=== PATIENT | male | born 1975 | race Caucasian/White ===

== ENCOUNTER 2024-04-22 06:47 | Emergency (ER) | payer OTHER, SELFPAY ==
[2024-04-22 06:52] VITALS: BP 166/103
[2024-04-22 07:26] VITALS: BMI 38.2
[2024-04-22 07:31] VITALS: BP 154/100
[2024-04-22 07:43] LABS: % Basophils 0.5 % (0-2); % Eosinophils 0.2 % (0-6); % Immature Granulocytes 0.7 % (0-0.5); % Lymphocytes 11.1 % (20.5-51.1); % Monocytes 11.8 % (1.7-9.3); % Neutrophils 75.7 % (42.2-75.2); Absolute Lymphocytes 0.6 10^3/uL (1.2-3.4); Absolute Monocytes 0.7 10^3/uL (0.1-0.6); Absolute Neutrophils 4.2 10^3/uL (1.4-6.5); Hematocrit 45.4 % (39.0-52.0); Hemoglobin 15.2 g/dL (13.0-18.0); Mean Corp Hgb Conc. 33.5 g/dL (33.0-37.0); Mean Corpuscular Hgb 27.8 pg (27.0-31.0); Mean Corpuscular Volume 83.2 fL (80.0-94.0); Mean Platelet Volume 9.9 fL (7.4-10.4); Nucleated Red Blood Cells % 0 % (-); Platelet Count 180 10^3/uL (130-400); Red Blood Cell Count 5.46 10^6/uL (4.70-6.10); Red Cell Dist. Width 12.9 % (11.5-14.5); White Blood Cell Count 5.5 10^3/uL (4.8-10.8)
[2024-04-22 07:57] LABS: ALT (SGPT) 39 U/L (0-50); AST (SGOT) 28 U/L (17-59); Albumin 4.4 g/dl (3.5-5.0); Alkaline Phosphatase 52 U/L (38-126); Blood Urea Nitrogen 22 mg/dl (9-20); Calcium 9.6 mg/dl (8.4-10.2); Carbon Dioxide 29 mmol/L (22-30); Chloride 97 mmol/L (98-107); Estimated Creatinine Clearance 116 ml/min; Glucose 227 mg/dl (70-99); Potassium 3.4 mmol/L (3.5-5.1); Sodium 138 mmol/L (135-145); Total Bilirubin 1.7 mg/dl (0.2-1.3); eGFR > 60.00
[2024-04-22 08:00] VITALS: BP 149/103
[2024-04-22 08:16] LABS: Troponin I < 0.012 ng/ml
--- NOTE | 2024-04-22 08:30 | ED.GENMED ---
History of Present Illness
General
Chief Complaint: Fever
Source: patient
Exam Limitations: none
Time Seen by Provider: 04/22/24 07:12
Nursing documentation reviewed up to this point in time: agreed with
History of Present Illness
History of Present Illness:
49-year-old male with past medical history as noted presents to the emergency room for evaluation of fever. Patient reports that last night he had a one-time fever to 101 �F. He took some Tylenol and fever has not returned. He notably has been
dealing with paronychia/ingrown toenail on the left big toe. He says that this has been painful and red for about 8 days. He says that he has been doing warm soaks and on Saturday went to urgent care to have it assessed; he was started on
doxycycline and scheduled podiatry follow-up for today at 9:45 AM. He says that at urgent care he was told that if he has a fever he should go to the emergency room and this is why he decided to come to the ER for his fever. He does note that he
has some hoarseness of his voice and he has young children at home and he wonders if perhaps he could have a virus that causes fever rather than fever related to toe. He does have known history of diabetes is on metformin.
Past History
Past History
ED Past Medical History: HTN and NIDDM
ED Past Surgical History: Orthopedic
Social History
Tobacco: Non-smoker
Alcohol: None
Drug: None
Personal:
Living: with family
Employment: Employed
Review of Systems
Review of Systems
All Other Systems: ROS reviewed and negative except as documented in HPI and ROS
Constitutional: Reports fever; Denies chills
EENT: Reports sore throat
Respiratory: Denies cough or trouble breathing
Cardiac: Denies chest pain
ABD/GI: Denies abdominal pain or vomiting
: Denies dysuria or flank pain
Skin: Reports other (Redness left toe)
Phy Exam
Physical Exam
Physical Exam:
General: Awake, alert, oriented x3; no acute distress
Head: Normocephalic, atraumatic
Eyes: Conjunctiva normal, sclera anicteric
Throat: Airway intact, handling secretions
Neck: Trachea midline, supple without meningismus
Lungs: Clear to auscultation bilaterally, no wheezing, rales, rhonchi
Heart: Tachycardia with regular rhythm, no murmurs, gallops, or rubs
Abd: Soft, non distended, nontender
Skin: Patient has some slight erythema along the medial edge of the left first toenail extending down to the nailbed (pictured)
Extremities: Skin findings as above on the toe; good left DP pulse palpable
Scores
Heart Failure Risk
Heart Failure Risk Score: Not Applicable
Heart Score for Chest Pain Patients
STEMI patient?: Not applicable
Withdrawal Assessment of Alcohol
Withdrawal Assessment Completed?: Not applicable
Course
Orders/Labs/Results
Orders:
Orders
04/22/24 06:55
EKG [Electrocardiogram (*1)] Urgent
Reason for Study: Tachycardia
Other Reason for Exam: chest pain
EKG- Treatment ONCE
04/22/24 07:33
Complete Blood Count/With Diff Urgent
Comprehensive Metabolic Panel Urgent
Troponin I Urgent
04/22/24 08:04
CR Toe(s) Min 2 Vw Left Urgent
Comment:
Reason For Exam: left toe infection
04/22/24 08:30
Encourage PO Hydration-Treatme ONCE
Abnormal Lab Results
04/22/24
07:33
Absolute Lymphs (auto) 0.6 L 10^3/uL
(1.2-3.4)
Absolute Monos (auto) 0.7 H 10^3/uL
(0.1-0.6)
Immature Gran % 0.7 H %
(0-0.5)
Neutrophils % 75.7 H %
(42.2-75.2)
Lymphocytes % 11.1 L %
(20.5-51.1)
Monocytes % 11.8 H %
(1.7-9.3)
Potassium 3.4 L mmol/L
(3.5-5.1)
Chloride 97 L mmol/L
(98-107)
BUN 22 H mg/dl
(9-20)
Glucose 227 H mg/dl
(70-99)
Total Bilirubin 1.7 H mg/dl
(0.2-1.3)
04/22/24 07:33
04/22/24 07:33
Vital Signs
Initial and Last Documented VS:
Initial Vital Signs
Temp Pulse Resp BP Pulse Ox
37.2 C 128 20 166/103 96
04/22/24 06:52 04/22/24 06:52 04/22/24 06:52 04/22/24 06:52 04/22/24 06:52
Last Documented Vital Signs
Temp Pulse Resp BP Pulse Ox
37.2 C 118 17 149/103 97
04/22/24 06:52 04/22/24 08:00 04/22/24 08:00 04/22/24 08:00 04/22/24 08:00
MDM/Problems Addressed
Differential Diagnosis Includes:
Fever: Infection in the nail, viral syndrome
MDM/Problems Addressed:
49-year-old male who has been treated outpatient for paronychia in the left big toe and has scheduled follow-up with podiatry in the office today at 9:45 AM presents for evaluation of fever. Had a fever to 101 �F last night that he treated with
Tylenol and has not recurred. He has had some mild viral symptoms. Suspect fever is more likely virus related than related to paronychia. We did send labs including a CBC which shows no leukocytosis. His CMP did show hyperglycemia in the setting
of known diabetes. X-ray of the toe shows no clear signs of osteomyelitis. He apparently complained of some chest pain in triage�patient says that he has had chest congestion for few days to me. His troponin is undetectable. EKG shows sinus
tachycardia. He notes that his heart rate is chronically elevated and he has seen cardiology for this issue. Case discussed with mailing section clerk who patient is scheduled to see today (Dr. Summers). Will refer patient to the office for a scheduled
appointment where they can perform partial nail avulsion. Patient very happy with this plan. All questions answered.
Chronic conditions affecting care:
Diabetes
*Pulse Oximetry
Patient hypoxic: no
*Critical Care Note
Total Time (30-74mins, 75-104mins- exclusive of procedures): Not Applicable
Data Reviewed
Source: patient and records
Patient Management
Discussion with other providers: Label Tacker (Discussed with mailing section clerk)
ED Attending Note
-
Portions of this chart may have been created with voice recognition software.� Occasional wrong word or��sound alike� substitutions may have occurred due to the inherent limitations of voice recognition software.
Discharge Plan
Departure
Patient Disposition: Home (Routine Discharge)
Date of Disposition: 04/22/24
Time of Disposition: 08:39
Patient with high blood pressure during this ER visit?: Yes
Discharge Problem:
Paronychia due to ingrown nail, Tachycardia, Hyperglycemia, Fever
Instructions: Tachycardia, Fever, Adult (DC), High Blood Sugar, Adult ED, Paronychia ED
Prescriptions:
No Action
tamsulosin [Flomax] 0.4 mg capsule
0.4 mg PO DAILY Qty: 7 0RF
Referrals:
Senia Summers DPM [Active] - 04/22/24 9:45 am
Griffin Worley MD [Family Provider] -
Activity Restrictions/Additional Instructions:
Thank you for visiting the Emergency Department at [facility].
1. Please schedule a follow up appointment as directed. Call first thing tomorrow morning to make an appointment.
2. If indicated, please take your medications as instructed and indicated on discharge paperwork.
3. If any of your symptoms do not improve, or persist, or become more severe within 6-12 hours, please return to the emergency department for further care.
4. Please return to the emergency department if you develop a headache, neck pain/stiffness, fever greater than 100.4F, chest pain, shortness of breath, persistent nausea, vomiting, slurred speech, difficulty walking, numbness/tingling, weakness,
signs of infection or any other symptoms that are worrisome to you.
Please call [phone] if you have any questions.
Interventions
Interventions:
*Risk Screen - Suicide Last Done: 04/22/24 06:52
*General Assessment Last Done: 04/22/24 06:52
*Neglect/Abuse Screening Last Done: 04/22/24 06:52
ED- Fall Risk Assessment Last Done: 04/22/24 07:28
*ED COVID-19 Vaccine History Last Done: 04/22/24 07:28
ED- Neurological Assessment Last Done: 04/22/24 07:28
ED-Skin Assessment Last Done: 04/22/24 07:28
Discharge Date and Time
Print Language: [id number]
[2024-04-22 08:32] VITALS: BP 147/96
== END 2024-04-22 08:55 | disposition home or self-care (01) ==
LOC: EMR 06:47
PROVIDERS: EMERGENCY PHYSICIAN Emergency Medicine; FAMILY PHYSICIAN Family Medicine
DX: L60.0 Ingrowing nail (principal); L03.032 Cellulitis of left toe; E11.65 Type 2 diabetes mellitus with hyperglycemia; R00.0 Tachycardia, unspecified; I10 Essential (primary) hypertension
CPT/HCPCS: 99284; 73660; 80053; 84484; 85025; 93005